=== PATIENT | male | born 1985 | race Caucasian/White ===

== ENCOUNTER 2018-11-27 19:16 | Emergency (ER) | payer BC, OTHER ==
[2018-11-27] MEDS ORDERED: LIDOCAINE 1%-EPI 1:100000 30 ML MDV SUBQ STA (19:43)
[2018-11-27] MEDS ORDERED: AMOX/CLAV 875 MG/125 MG TABLET PO STA (19:43)
--- NOTE | 2018-11-27 19:44 | ED Physician Documentation ---
History of Present Illness - Stated complaint Stated Complaint: MALE /FEVER - Chief complaint Chief Complaint: General - History obtained from History obtained from: Patient - History of Present Illness Timing: Other (33-year-old healthy gentleman presents with about a 4 or 5-day history of an increasingly painful lesion on the perineum with some subjective fevers. He is never had anything like this before.) Review of Systems Constitutional: reports: Fever. denies: Chills GI: denies: Abdominal Pain, Nausea, Vomiting Musculoskeletal: denies: Neck pain, Back pain PD PAST MEDICAL HISTORY - Present Medications Home Medications: Ambulatory Orders Medication Instructions Recorded Confirmed Amox/Clav 875/125 [Augmentin] 1 each PO Q12H #20 tablet 11/27/18 - Allergies Allergies/Adverse Reactions: Allergies Allergy/AdvReac Type Severity Reaction Status Date / Time codeine Allergy Anaphylaxis Verified 11/27/18 19:20 PD ED PE NORMAL - Vitals Vital signs reviewed: Yes - General General: Alert and oriented X 3, No acute distress - Abdomen Abdomen: Normal bowel sounds, Soft, Non tender - Male Male : Other (There is a pointed anterior perianal abscess without evident deep extension.) - Neuro Neuro: Alert and oriented X 3, Normal speech - Psych Psych: Normal mood, Normal affect Results - Vitals Vitals: Vital Signs - 24 hr 11/27/18 19:20 Temperature 37.3 C Heart Rate 110 H Respiratory 16 Rate Blood Pressure 133/83 H O2 Saturation 97 Oxygen O2 Source Room air Procedures - Abscess I&D (location) perianal Preparation: Alcohol, Lidocaine 1%, With epi Incision: Incised with scalpel, Purulent drainage, Loculations broken, Packed Other: Pt tolerated well, Dressing applied, Antibiotic prescribed Departure - Departure Disposition: Home, Self Care Clinical Impression: Perianal abscess Condition: Good Record reviewed to determine appropriate education?: Yes Instructions: ED Raina Anal Abscess IandD Prescriptions: Amox/Clav 875/125 [Augmentin] 1 each PO Q12H #20 tablet Comments: Follow-up with your doctor on Thursday as scheduled. Return for new or worsening symptoms. As discussed you have packing in place, this will need to be removed on Thursday. Forms: Activity restrictions
[2018-11-27 20:18] VITALS: BP 127/78
== END 2018-11-27 20:18 | disposition home or self-care (01) ==
LOC: ED 19:16
DX: K61.0 Anal abscess (principal)
CPT/HCPCS: 46050; 99283; A9270

== ENCOUNTER 2021-05-28 08:00 | Outpatient (CLI) | payer OTHER ==
[2021-05-28 23:51] LABS: CHLAMYDIA TRACHOMATIS DNA NEGATIVE (NEGATIVE); NEISSERIA GONORRHOEAE DNA NEGATIVE (NEGATIVE)
[2021-05-30 09:12] LABS: HEPATITIS C ANTIBODY NON-REACTIVE (NON-REACTIVE)
[2021-05-30 10:26] LABS: HIV AG/AB 4TH GEN NON-REACTIVE (NON-REACTIVE)
== END 2021-05-28 23:59 | disposition home or self-care (01) ==
LOC: LAB.S 08:00
PROVIDERS: ATTEND Physician Assistant Medical
DX: Z72.51 High risk heterosexual behavior (principal)
CPT/HCPCS: 36415; 86317; 86592; 86803; 87389; 87491; 87591; 87661

== ENCOUNTER 2021-06-05 15:08 | Emergency (ER) | payer OTHER ==
[2021-06-05 16:57] LABS: BILIRUBIN,URINE NEGATIVE (NEGATIVE); GLUCOSE, URINE (UA) NEGATIVE (NEGATIVE); KETONES,URINE (UA) NEGATIVE (NEGATIVE); LEUKOCYTE ESTERASE, URINE NEGATIVE (NEGATIVE); NITRITE,URINE NEGATIVE (NEGATIVE); OCCULT BLOOD,URINE NEGATIVE (NEGATIVE); PH,URINE 6.5 PH (5.0-7.5); PROTEIN,URINE NEGATIVE (NEGATIVE); UROBILINOGEN,URINE 0.2 (NORMAL) E.U./dL (NORMAL)
[2021-06-05 17:01] LABS: CLARITY,URINE CLEAR (CLEAR)
--- NOTE | 2021-06-05 17:44 | ED Physician Documentation ---
History of Present Illness - Stated complaint Stated Complaint: MALE - Chief complaint Chief Complaint: Abd Pain - Additonal information Additional information: 36-year-old male presents emergency department for evaluation of 1 week of on going bilateral testicular and scrotal pain. Has never had this before. He reports in the mornings that he feels okay but as the day goes on the pain gets progressively worse. He reports that he was tested for sexually transmitted infection about 2 weeks ago and was negative. Last sexual activity about 6 weeks ago. No penile discharge no dysuria. Review of Systems Constitutional: reports: Reviewed and negative Nose: reports: Reviewed and negative Throat: reports: Reviewed and negative Cardiac: reports: Reviewed and negative Respiratory: reports: Reviewed and negative GI: reports: Reviewed and negative : reports: Testicular pain. denies: Dysuria Skin: reports: Reviewed and negative Musculoskeletal: reports: Reviewed and negative PD PAST MEDICAL HISTORY - Past Medical History Past Medical History: Yes Cardiovascular: None Respiratory: None Neuro: None Endocrine/Autoimmune: None GI: None : None HEENT: None Psych: None Musculoskeletal: None Derm: None - Past Surgical History Past Surgical History: Yes General: Cholecystectomy - Present Medications Home Medications: Ambulatory Orders Medication Instructions Recorded Confirmed Amox/Clav 875/125 [Augmentin] 1 each PO Q12H #20 tablet 11/27/18 Doxycycline Hyclate [Vibramycin] 100 mg PO BID #20 cap 06/05/21 - Allergies Allergies/Adverse Reactions: Allergies Allergy/AdvReac Type Severity Reaction Status Date / Time codeine Allergy Anaphylaxis Verified 06/05/21 15:17 - Social History Does the pt smoke?: Yes Smoking Status: Current every day smoker Does the pt drink ETOH?: Yes Does the pt have substance abuse?: No - Immunizations Immunizations are current?: Yes - POLST Patient has POLST: No PD ED PE EXPANDED - General General: Alert, No acute distress, Well developed/nourished - Cardiac Cardiac: Regular Rate. No: Radial strong equal, Pedal strong equal - Respiratory Respiratory: Clear to ausultation maxx. No: Distress, Labored - Abdomen Abdomen: Normal Bowel sounds. No: Tender to palpation - Male Male : Circumcised, Testes descended maxx, Normal lie/cremastaric, Tenderness (Positive cremasteric bilaterally. 2+ femoral pulse bilaterally no adenopathy noted. No scrotal induration or erythema. Bilateral testes are tender to palpation.). No: Testicular Mass - Extremities Extremities: Normal. No: Deformity, Tenderness Results - Vitals Vitals: Vital Signs - 24 hr 06/05/21 06/05/21 15:17 19:33 Temperature 36.6 C Heart Rate 78 73 Respiratory 18 16 Rate Blood Pressure 152/97 H 165/91 H O2 Saturation 98 99 Oxygen O2 Source Room air - Labs Labs: Laboratory Tests 06/05/21 06/05/21 06/05/21 16:30 17:45 17:45 WBC 7.9 RBC 4.60 L Hgb 13.6 L Hct 39.8 L MCV 86.5 MCH 29.6 MCHC 34.2 RDW 12.2 Plt Count 302 MPV 9.1 Neut # (Auto) 4.6 Lymph # (Auto) 2.3 [place] # (Auto) 0.6 Eos # (Auto) 0.3 Baso # (Auto) 0.1 Absolute Nucleated RBC 0.00 Nucleated RBC % 0.0 Sodium 140 Potassium 3.7 Chloride 103 Carbon Dioxide 25 Anion Gap 12.0 BUN 11 Creatinine 0.7 Estimated GFR (MDRD) 128 Glucose 85 Calcium 9.7 Total Bilirubin 0.7 AST 17 ALT 21 Alkaline Phosphatase 47 Total Protein 7.8 Albumin 4.7 Globulin 3.1 Albumin/Globulin Ratio 1.5 Lipase 31 Urine Color YELLOW Urine Clarity CLEAR Urine pH 6.5 Ur Specific [place] 1.010 Urine Protein NEGATIVE Urine Glucose (UA) NEGATIVE Urine Ketones NEGATIVE Urine Occult Blood NEGATIVE Urine Nitrite NEGATIVE Urine Bilirubin NEGATIVE Urine Urobilinogen 0.2 (NORMAL) Ur Leukocyte Esterase NEGATIVE Ur Microscopic Review NOT INDICATED Urine Culture Comments NOT INDICATED - Rads (name of study) test US Radiology: Final report received (Left veryBilateral hyperemic epididymis left greater than right. Small epididymal cyst bilaterally. Stable small left) PD MEDICAL DECISION MAKING - ED course Complexity details: reviewed results, re-evaluated patient, d/w patient ED course: 36-year-old male presents emergency department with 1 week of bilateral testicular tenderness. He has had unprotected sex but reports that he was recently negative for chlamydia and gonorrhea at outpatient testing. UA and screening labs without acute findings of infection. Testicular ultrasound shows bilateral epididymis epididymal cysts as well as likely epididymitis. Patient was given 500 mg of ceftriaxone here in the ER and will be discharged with 10 days of doxycycline. Encourage close follow-up with primary care doctor as well as urology. Emergent return precautions discussed. Departure - Departure Disposition: 01 Home, Self Care Clinical Impression: Epididymitis, bilateral Condition: Stable Record reviewed to determine appropriate education?: Yes Instructions: Epididymitis Dc Prescriptions: Doxycycline Hyclate [Vibramycin] 100 mg PO BID #20 cap Comments: Delroy the ultrasound shows bilateral epididymitis. This is inflammation. It is typically due to sexually transmitted disease though you reported you were tested negative recently. You were given an injection of ceftriaxone here in the emergency department. Please fill the prescription for the doxycycline and begin taking twice daily for the next 10 days. I advised very close follow-up with your primary care provider. If your symptoms are not improving you can return to the ER but in the long-term you may benefit from referral to a urologist. Return to the ER if you develop any fevers, have swelling of your scrotum or testes, have suddenly severe pain or you feel your symptoms are not improving. Your prescription for the antibiotics was sent electronically to the [facility] in [place]
[2021-06-05 17:53] LABS: BASOPHILS # (AUTO) 0.1 10^3/uL (0.0-0.1); BASOPHILS % (AUTO) 1.5 %; EOSINOPHILS # (AUTO) 0.3 10^3/uL (0.0-0.7); EOSINOPHILS % (AUTO) 3.7 %; HCT - HEMATOCRIT 39.8 % (42.0-52.0); HGB - HEMOGLOBIN 13.6 g/dL (14.0-18.0); LYMPHOCYTES # (AUTO) 2.3 10^3/uL (1.5-3.5); LYMPHOCYTES % (AUTO) 28.8 %; MEAN CORPUSCULAR HEMOGLOBIN 29.6 pg (27.0-31.0); MEAN CORPUSCULAR HGB CONC 34.2 g/dL (32.0-36.0); MEAN CORPUSCULAR VOLUME 86.5 fL (80.0-94.0); MEAN PLATELET VOLUME 9.1 fL (7.4-11.4); MONOCYTES # (AUTO) 0.6 10^3/uL (0.0-1.0); MONOCYTES % (AUTO) 7.4 %; NEUTROPHILS # (AUTO) 4.6 10^3/uL (1.5-6.6); NEUTROPHILS % (AUTO) 58.3 %; PLT - PLATELET COUNT 302 10^3/uL (130-450); RED CELL DISTRIBUTION WIDTH 12.2 % (12.0-15.0); WHITE BLOOD COUNT 7.9 x10^3/uL (4.8-10.8)
[2021-06-05 18:05] LABS: ALBUMIN 4.7 g/dL (3.2-5.5); ALBUMIN/GLOBULIN RATIO 1.5 (1.0-2.2); BILIRUBIN,TOTAL 0.7 mg/dL (0.2-1.0); CALCIUM 9.7 mg/dL (8.5-10.3); CREATININE 0.7 mg/dL (0.6-1.2); POTASSIUM 3.7 mmol/L (3.5-5.0); TOTAL PROTEIN 7.8 g/dL (6.7-8.2)
[2021-06-05 19:35] VITALS: BP 165/91
[2021-06-05] MEDS ORDERED: LIDOCAINE 1% 2 ML VIAL MC ONE (19:37)
[2021-06-05] MEDS ORDERED: cefTRIAXone 500 MG VIAL IM STA (19:37)
--- NOTE | 2021-06-05 20:05 | Ultrasound Report ---
PROCEDURE: Testicle w/Doppler INDICATIONS: 7 days of bilateral scrotal/test pain TECHNIQUE: Real-time scanning was performed of the scrotum and testicles, with image documentation. Color and p ulse Doppler interrogation was performed of both testicles. COMPARISON: None. FINDINGS: Right: Testicle is normal in size at 4.3 x 2.4 x 3.0 cm, and homogenous in echotexture. Epididymis is normal in overall size and morphology. Small right hydrocele. No varicocele. Epididymis demonstrat es hyperemia. Incidental epididymal head cyst. Overlying scrotal skin is normal in thickness. Left: Testicle is normal in size at 4.4 x 2.3 x 3.0 cm, and homogeneous in echotexture. Epididymis is normal in overall size and morphology. Mild hyperemia of the left epididymis. Incidental epididym al head cysts. Small hydrocele. No varicoceles. Overlying scrotal skin is normal in thickness. Doppler: Color and pulse Doppler demonstrate normal and symmetric arterial flow in both testicles. IMPRESSION: 1. Findings compatible with bilateral epididymitis. 2. No sonographic evidence for testicular torsion. 3. Small bilateral hydroceles likely reactive in etiology. Reviewed by: Yossi Spring MD on 06/05/2021 8:04 PM PST Approved by: Yossi Spring MD on 06/05/2021 8:04 PM PST Station ID: [id number]
== END 2021-06-05 19:55 | disposition home or self-care (01) ==
LOC: ED 15:08
DX: N45.1 Epididymitis (principal); F17.200 Nicotine dependence, unspecified, uncomplicated
CPT/HCPCS: 36415; 80053; 81001; 81003; 83690; 85025; 87086; 93975; 96372; 99283; 99284

== ENCOUNTER 2024-01-02 21:18 | Emergency (ER) | payer OTHER ==
[2024-01-02 21:33] VITALS: O2SAT 99
--- NOTE | 2024-01-02 21:55 | ED Physician Documentation ---
History of Present Illness - Stated complaint Stated Complaint: FALL - Chief complaint Chief Complaint: Trauma Ext - History obtained from History obtained from: Patient - Additonal information Additional information: Patient is a 38-year-old male presenting for evaluation of head injury that occurred late this evening. Patient was outside working on a rock pile on his property when he fell. He believes he had LOC as he does not entirely recall what occurred. He does report pain to the head and the neck. He has had 5 or 6 beers since about noon time today. He does not take a blood thinner. He is otherwise ambulatory denies pain elsewhere. Review of Systems Constitutional: denies: Fever Cardiac: denies: Chest pain / pressure Respiratory: denies: Dyspnea GI: denies: Abdominal Pain Musculoskeletal: reports: Neck pain Neurologic: reports: Headache, Head injury PD PAST MEDICAL HISTORY - Past Medical History Cardiovascular: None Respiratory: None Neuro: None Endocrine/Autoimmune: None GI: None : None HEENT: None Psych: None Musculoskeletal: None Derm: None - Past Surgical History Past Surgical History: Yes General: Cholecystectomy - Present Medications Home Medications: Ambulatory Orders Medication Instructions Recorded Confirmed No Known Home Medications 01/02/24 01/02/24 - Allergies Allergies/Adverse Reactions: Allergies Allergy/AdvReac Type Severity Reaction Status Date / Time codeine Allergy Anaphylaxis Verified 01/02/24 21:21 - Social History Does the pt smoke?: Yes Smoking Status: Current every day smoker Does the pt drink ETOH?: Yes Does the pt have substance abuse?: No - Immunizations Immunizations are current?: Yes - POLST Patient has POLST: No PD ED PE NORMAL - General General: Alert and oriented X 3, No acute distress, Well developed/nourished - HEENT HEENT: Atraumatic, PERRL, EOMI, Moist mucous membranes, Pharynx benign - Neck Neck: Supple, no meningeal sign, Other (Mild tenderness) - Cardiac Cardiac: RRR - Respiratory Respiratory: No respiratory distress, Clear bilaterally - Abdomen Abdomen: Soft, Non tender, Non distended - Back Back: No spinal TTP - Derm Derm: Warm and dry - Extremities Extremities: No deformity - Neuro Neuro: Alert and oriented X 3, atg architect 2-12 intact, No motor deficit, No sensory deficit, Normal speech Eye Opening: Spontaneous Motor: Obeys Commands Verbal: Oriented GCS Score: 15 Results - Vitals Vitals: Vital Signs - 24 hr 01/02/24 01/02/24 21:23 23:30 Temperature 36.5 C 36.6 C Heart Rate 79 83 Respiratory 18 18 Rate Blood Pressure 143/85 H 118/73 O2 Saturation 99 99 Oxygen O2 Source Room air PD Medical Decision Making - ED course Complexity details: reviewed results, re-evaluated patient, d/w patient ED course: Patient presenting for evaluation after a fall, head injury and headache in the setting of EtOH use today. Normal neuroexam. Patient is speaking clearly and ambulating without any difficulty on his own. CT head and C-spine were obtained and reviewed and without any significant findings. C-spine was also cleared clinically with no exam findings to suggest ligamentous injury or instability. Patient given lidocaine patch. Counseled on continued supportive care as well as concerning symptoms to return for. Departure - Departure Disposition: 01 Home, Self Care Clinical Impression: Head injury, Alcohol use Condition: Stable Instructions: ED Head Injury Closed Comments: The CT scans of your head and your neck do not show any injuries from your fall. I have given you a lidocaine patch for any discomfort. Continue with anti- inflammatory such as acetaminophen or ibuprofen, ice. Return to the ER if you develop any worsening pain anywhere or with any other concerns. Forms: PCP List Discharge Date/Time: 01/02/24 23:34
--- NOTE | 2024-01-02 23:03 | CT Report ---
PROCEDURE: Cervical Spine WO INDICATIONS: fall/pain TECHNIQUE: Noncontrast 3 mm thick sections acquired from the skull base to the T4 level. Sagittal and coronal r eformats were then constructed. For radiation dose reduction, the following was used: automated exp osure control, adjustment of mA and/or kV according to patient size. COMPARISON: None. FINDINGS: Image quality: Diagnostic. Bones: No fractures or dislocations. Visualized superior ribs are intact. Soft tissues: Prevertebral soft tissues are normal in thickness. No paravertebral hematomas. No ap ical pneumothoraces. Mild right greater than left paraseptal emphysematous changes at the lung apices . IMPRESSION: No acute, displaced fracture or traumatic subluxation. Reviewed by: Azucena Lopez MD, PhD on 01/02/2024 11:02 PM PDT Approved by: Azucena Lopez MD, PhD on 01/02/2024 11:02 PM PDT Station ID: [id number]
--- NOTE | 2024-01-02 23:05 | CT Report ---
PROCEDURE: Head WO INDICATIONS: fall/etoh/headache/LOC TECHNIQUE: Noncontrast 4.5 mm thick angled axial sections acquired from the foramen magnum to the vertex. For r adiation dose reduction, the following was used: automated exposure control, adjustment of mA and/or kV according to patient size. COMPARISON: None. FINDINGS: Image quality: Excellent. CSF spaces: Basal cisterns are patent. No extra-axial fluid collections. Ventricles are normal in size and shape. Brain: No midline shift. No intracranial masses or hemorrhage. Vasquez-white matter interface is norm al. Skull and face: Calvarium and visualized facial bones are intact, without suspicious lesions. Sinuses: Mild circumferential bilateral maxillary sinus mucosal thickening and scattered opacificatio ns of ethmoid air cells. Mastoids are clear. IMPRESSION: No acute intracranial pathology. Reviewed by: Azucena Lopez MD, PhD on 01/02/2024 11:03 PM PDT Approved by: Azucena Lopez MD, PhD on 01/02/2024 11:03 PM PDT Station ID: [id number]
[2024-01-02] MEDS: LIDOCAINE PATCH 5% TOP STA (23:29)
[2024-01-02 23:38] VITALS: BP 118/73
== END 2024-01-02 23:34 | disposition home or self-care (01) ==
LOC: ED 21:18
DX: S09.90XA Unspecified injury of head, initial encounter (principal); W19.XXXA Unspecified fall, initial encounter; Y93.89 Activity, other specified; F17.200 Nicotine dependence, unspecified, uncomplicated
CPT/HCPCS: 70450; 72125; 99283; 99284; A9270

== ENCOUNTER 2024-01-09 20:06 | Emergency (ER) | payer OTHER ==
[2024-01-09 20:49] LABS: BASOPHILS # (AUTO) 0.1 10^3/uL (0.0-0.1); EOSINOPHILS # (AUTO) 0.2 10^3/uL (0.0-0.7); EOSINOPHILS % (AUTO) 2.2 %; HCT - HEMATOCRIT 41.5 % (42.0-52.0); LYMPHOCYTES # (AUTO) 1.1 10^3/uL (1.5-3.5); LYMPHOCYTES % (AUTO) 11.4 %; MEAN CORPUSCULAR HGB CONC 33.7 g/dL (32.0-36.0); MEAN CORPUSCULAR VOLUME 86.1 fL (80.0-94.0); MONOCYTES # (AUTO) 0.3 10^3/uL (0.0-1.0); MONOCYTES % (AUTO) 3.7 %; NEUTROPHILS # (AUTO) 7.5 10^3/uL (1.5-6.6); NEUTROPHILS % (AUTO) 81.5 %; PLT - PLATELET COUNT 289 10^3/uL (130-450); RED BLOOD COUNT 4.82 10^6/uL (4.70-6.10); RED CELL DISTRIBUTION WIDTH 12.2 % (12.0-15.0); WHITE BLOOD COUNT 9.2 x10^3/uL (4.8-10.8)
[2024-01-09 21:05] LABS: ALBUMIN 4.7 g/dL (3.2-5.5); ALBUMIN/GLOBULIN RATIO 1.9 (1.0-2.2); BILIRUBIN,TOTAL 0.6 mg/dL (0.2-1.0); CALCIUM 9.7 mg/dL (8.5-10.3); CREATININE 0.8 mg/dL (0.6-1.3); MAGNESIUM 1.8 mg/dL (1.7-2.3); POTASSIUM 3.4 mmol/L (3.5-4.5); TOTAL PROTEIN 7.2 g/dL (6.4-8.9)
[2024-01-09] MEDS: SODIUM CHLORIDE 0.9% 1,000 ML IV ONE (21:07)
[2024-01-09] MEDS: ONDANSETRON 4 MG/2 ML VIAL IVP STA (21:07)
[2024-01-09] MEDS: DROPERIDOL 5 MG/2 ML VIAL IVP STA (21:19)
[2024-01-09] MEDS ORDERED: ONDANSETRON ODT 4 MG Prepack 2 TL PRN (22:46)
--- NOTE | 2024-01-09 22:49 | ED Physician Documentation ---
History of Present Illness - Stated complaint Stated Complaint: VOMIT - Chief complaint Chief Complaint: Abd Pain - Additonal information Additional information: 38-year-old male with history of alpha gal syndrome presents emergency departmen t for concerns that he ate some sort of contaminated food that caused immediate nausea and vomiting. Patient says that alpha gal syndrome is due to a tickborne illness he is from [place] he said that he has not had any bouts of hyperemesis over the last 6 to 7 years as he has been able to avoid all mammals he went out to eat with his suraj and says that there could have been some sort of food contamination because he started to notice immediate nausea with projectile vomiting. He says that in the past he has never come in this early he usually tries to wait it out which has then required hospitalization but has not required hospitalization for at least the last 6 to 7 years. He denies any abdominal pain but does have multiple episodes of projectile vomiting no shortness of breath no diarrhea. PD PAST MEDICAL HISTORY - Past Medical History Past Medical History: Yes Cardiovascular: None Respiratory: None Neuro: None Endocrine/Autoimmune: None GI: Other : None HEENT: None Psych: None Musculoskeletal: None Derm: None Other Past Medical History: alpha-gal syndrome - Past Surgical History Past Surgical History: Yes General: Cholecystectomy - Present Medications Home Medications: Ambulatory Orders Medication Instructions Recorded Confirmed No Known Home Medications 01/02/24 01/09/24 - Allergies Allergies/Adverse Reactions: Allergies Allergy/AdvReac Type Severity Reaction Status Date / Time codeine Allergy Anaphylaxis Verified 01/09/24 20:13 - Social History Does the pt smoke?: Yes Smoking Status: Current every day smoker Does the pt drink ETOH?: Yes Does the pt have substance abuse?: No - Immunizations Immunizations are current?: Yes - POLST Patient has POLST: No PD ED PE NORMAL - Vitals Vital signs reviewed: Yes - General General: Alert and oriented X 3, No acute distress, Well developed/nourished - HEENT HEENT: Moist mucous membranes - Neck Neck: Supple, no meningeal sign - Cardiac Cardiac: RRR, No murmur - Respiratory Respiratory: No respiratory distress - Abdomen Abdomen: Normal bowel sounds, Soft, Non tender, Non distended, No organomegaly - Derm Derm: Normal color, Warm and dry, No rash - Extremities Extremities: No edema Results - Vitals Vitals: Vital Signs - 24 hr 01/09/24 01/09/24 01/09/24 20:07 21:54 22:13 Temperature 36.9 C 36.6 C Heart Rate 84 51 L 84 Respiratory 18 16 16 Rate Blood Pressure 152/84 H 135/91 H 129/96 H O2 Saturation 96 99 98 01/09/24 23:04 Temperature Heart Rate 80 Respiratory 16 Rate Blood Pressure 146/88 H O2 Saturation 99 Oxygen O2 Source Room air - Labs Labs: Laboratory Tests 01/09/24 01/09/24 20:44 20:44 WBC 9.2 RBC 4.82 Hgb 14.0 Hct 41.5 L MCV 86.1 MCH 29.0 MCHC 33.7 RDW 12.2 Plt Count 289 MPV 9.0 Neut # (Auto) 7.5 H Lymph # (Auto) 1.1 L [place] # (Auto) 0.3 Eos # (Auto) 0.2 Baso # (Auto) 0.1 Absolute Nucleated RBC 0.00 Nucleated RBC % 0.0 Sodium 139 Potassium 3.4 L Chloride 104 Carbon Dioxide 25 Anion Gap 10.0 BUN 10 Creatinine 0.8 Estimated GFR (MDRD) 109 Glucose 112 H Calcium 9.7 Magnesium 1.8 Total Bilirubin 0.6 AST 14 ALT 18 Alkaline Phosphatase 50 Total Protein 7.2 Albumin 4.7 Globulin 2.5 Albumin/Globulin Ratio 1.9 Lipase 12 PD Medical Decision Making - ED course ED course: 38-year-old male presents emergency department for alpha gal syndrome flareup. Alpha-gal syndrome is in allergy to alpha gal is sugar found in beef pork [employer]ellers and meats for most mammals This is caused by tickborne illness. He said that he has been able to control the symptoms for the last 6 to 7 years. Labs are complete for further evaluation no leukocytosis no anemia very minimally suppressed potassium at 3.4 normal magnesium more normal kidney function. Patient was given a liter of IV fluids here in the emergency department we originally started some Zofran but patient's symptoms persisted so we went ahead with some IV droperidol. After small dose of IV droperidol patient symptoms almost immediately resolved. Patient says that he would like to go home he will be sent home with a take-home pack of Zofran and he is given strict ER return precautions told to rehydrate with electrolyte such as Gatorade or coconut water return precautions given all questions answered patient is safe for discharge. Departure - Departure Disposition: 01 Home, Self Care Clinical Impression: Nausea & vomiting Qualifiers: Vomiting type: unspecified Qualified Code(s): R11.2 - Nausea with vomiting, unspecified Instructions: ED Diet [place] Comments: Thank you thank you for trusting us with your care. Your symptoms have fully resolved after droperidol and Zofran we have also given you a liter of IV fluids. We are sending you home with some Zofran you can take 1 pill every 6 hours please come back to the emergency department if your symptoms come back if you start develop any abdominal pain fevers chills or any other concerning emergent symptoms. Be cautious introducing food back into your stomach and start with a very bland diet drink things that have electrolytes in it such as Gatorade or coconut water. Forms: PCP List Discharge Date/Time: 01/09/24 23:05
[2024-01-09 23:09] VITALS: BP 146/88; O2SAT 99
== END 2024-01-09 23:05 | disposition home or self-care (01) ==
LOC: ED 20:06
DX: Z91.014 Allergy to mammalian meats (principal); F17.200 Nicotine dependence, unspecified, uncomplicated
CPT/HCPCS: 36415; 80053; 83690; 83735; 85025; 96374; 96375; 99283